=== PATIENT | male | born 1930 | race Caucasian/White ===

== ENCOUNTER 2016-07-03 10:22 | Emergency (ER) | payer OTHER ==
--- NOTE | 2016-07-08 23:44 | ER ---
ADMIT: 07/03/2016 RM/LOC: ER [facility] MR#: [id number] [facility] [address] [place], [place] [id number] ZACHARY AVALOS [address] [place] [id number] Emergency Room Report SEX: M AGE: 85 : 1930 DATE: 07/03/2016 TIME: 1022 hours. please refer to my T-sheet for complete H and P. HISTORY OF PRESENT ILLNESS: Briefly, the patient is an 85-year-old, sent from [facility]. He went in there for routine appointment. Told them he had not been taking his meds for 20 days. He has a defibrillator, he said it went off 20 days ago also. He says he feels fine and was there, sent over here for evaluation. PHYSICAL EXAMINATION: VITAL SIGNS: Blood pressure 187/77, pulse 81, respirations 12, temp 96.9, sat 96%. GENERAL: No acute distress. HEENT: Grossly normal. LUNGS: Clear. HEART: Regular. ABDOMEN: Soft. EXTREMITIES: He has 4+ edema. He has a history of edema. EMERGENCY DEPARTMENT COURSE: CBC was normal. Chemistry was normal. Troponin was negative. EKG was sinus rhythm, rate 60 and there were no changes. We interrogated his pacer, revealed an episode of VFib that he was defibrillated out of on the , so 20 days ago, 2 short runs of ventricular tachycardia that he was paced out, those were on the 06/18. I gave him his dose of carvedilol that he should be taking. I gave his dose of Lasix. I talked to [facility], they recommended getting him back on his medications and follow up with [facility] down in [place], I talked to patient and he is ready for discharge. ASSESSMENT: 1. Hypertension. 2. Noncompliance. 3. Run of ventricular fibrillation on 06/13/2016 where he was defibrillated out. PLAN: Restart his medications. Follow up with [facility]. Return if worse. Follow up with the [facility]. Franco Morales MD/ artemio JOB #: [id number] CC: Franco Morales MD, Attending Physician [facility] Physician, Family Physician ADMIT: 07/03/2016 RM/LOC: [facility] MR#: [id number] [id number] [id number] ZACHARY AVALOS [address] [place] [id number] Emergency Room Report SEX: M AGE: 85 : 1930 . [facility]
== END 2016-07-03 14:00 | disposition home or self-care (01) ==
LOC: ER 10:22
DX: I10 Essential (primary) hypertension (principal); I49.01 Ventricular fibrillation; Z91.14 Patient's other noncompliance with medication regimen; F32.9 Major depressive disorder, single episode, unspecified; K21.9 Gastro-esophageal reflux disease without esophagitis